=== PATIENT | male | born 1970 | race African-American/Black ===

== ENCOUNTER 2021-01-11 01:21 | Emergency (ER) | payer MEDICAID ==
[~2021-01-11] VITALS: Ht 185.4 cm; Wt 95.9 kg
[2021-01-11 01:44] VITALS: BP 133/84
[2021-01-11] MEDS ORDERED: OLAN10TA3 MT (02:23)
[2021-01-11] MEDS ORDERED: OLANZAPINE 10MG TABLET PO SCH (02:30)
== END 2021-01-11 06:31 | disposition home or self-care (01) ==
LOC: ER 01:21
DX: Z76.0 Encounter for issue of repeat prescription (principal)
CPT/HCPCS: 99283